=== PATIENT | male | born 1935 | race Caucasian/White ===

== ENCOUNTER 2016-10-29 09:43 | Outpatient (CLI) | payer MEDICARE, OTHER | END 2016-10-29 09:44 | disposition home or self-care (01) | DX: I48.91 Unspecified atrial fibrillation (principal); Z79.01 Long term (current) use of anticoagulants ==

== ENCOUNTER 2016-11-24 20:19 | Outpatient (CLI) | payer MEDICARE, OTHER | END 2016-11-24 20:20 | disposition home or self-care (01) | LOC: LAB.N 20:19 | PROVIDERS: ATTEND Internal Medicine | DX: I48.91 Unspecified atrial fibrillation (principal); Z79.01 Long term (current) use of anticoagulants | CPT/HCPCS: 85610 ==

== ENCOUNTER 2016-12-08 09:20 | Outpatient (CLI) | payer MEDICARE, OTHER | END 2016-12-08 09:21 | disposition home or self-care (01) | DX: I48.91 Unspecified atrial fibrillation (principal); Z79.01 Long term (current) use of anticoagulants ==

== ENCOUNTER 2016-12-30 10:10 | Outpatient (CLI) | payer MEDICARE, OTHER | END 2016-12-30 10:11 | disposition home or self-care (01) | DX: I50.9 Heart failure, unspecified (principal) ==

== ENCOUNTER 2017-01-05 08:00 | Outpatient (CLI) | payer MEDICARE, OTHER | END 2017-01-05 08:01 | disposition home or self-care (01) | DX: I48.91 Unspecified atrial fibrillation (principal); Z79.01 Long term (current) use of anticoagulants ==

== ENCOUNTER 2017-02-02 13:31 | Outpatient (CLI) | payer MEDICARE, OTHER | END 2017-02-02 13:32 | disposition home or self-care (01) | DX: I48.91 Unspecified atrial fibrillation (principal); Z79.01 Long term (current) use of anticoagulants ==

== ENCOUNTER 2017-02-26 08:56 | Outpatient (CLI) | payer MEDICARE, OTHER | END 2017-02-26 08:57 | disposition home or self-care (01) | DX: E78.2 Mixed hyperlipidemia (principal); Z79.899 Other long term (current) drug therapy ==

== ENCOUNTER 2017-03-04 13:03 | Outpatient (CLI) | payer MEDICARE, OTHER | END 2017-03-04 13:04 | LOC: LAB.N 13:03 | PROVIDERS: ATTEND Internal Medicine | DX: I48.91 Unspecified atrial fibrillation (principal); Z79.01 Long term (current) use of anticoagulants | CPT/HCPCS: 85610 ==

== ENCOUNTER 2017-03-20 11:29 | Outpatient (CLI) | payer MEDICARE, OTHER | END 2017-03-20 11:30 | disposition home or self-care (01) | LOC: LAB.N 11:29 | PROVIDERS: ATTEND Internal Medicine | DX: I48.91 Unspecified atrial fibrillation (principal) | CPT/HCPCS: 85610 ==

== ENCOUNTER 2017-04-02 14:16 | Outpatient (CLI) | payer MEDICARE, OTHER | END 2017-04-02 14:17 | disposition home or self-care (01) | LOC: LAB.N 14:16 | PROVIDERS: ATTEND Internal Medicine | DX: Z79.01 Long term (current) use of anticoagulants (principal) | CPT/HCPCS: 85610 ==

== ENCOUNTER 2017-05-04 08:37 | Outpatient (CLI) | payer MEDICARE, OTHER | END 2017-05-04 08:38 | disposition home or self-care (01) | LOC: LAB.N 08:37 | PROVIDERS: ATTEND Internal Medicine | DX: I48.91 Unspecified atrial fibrillation (principal) | CPT/HCPCS: 85610 ==

== ENCOUNTER 2017-05-18 08:00 | Outpatient (CLI) | payer MEDICARE, OTHER | END 2017-05-18 08:01 | disposition home or self-care (01) | LOC: LAB.N 08:00 | PROVIDERS: ATTEND Internal Medicine | DX: I48.91 Unspecified atrial fibrillation (principal) | CPT/HCPCS: 85610 ==

== ENCOUNTER 2017-06-04 10:46 | Outpatient (CLI) | payer MEDICARE, OTHER | END 2017-06-04 10:47 | disposition home or self-care (01) | LOC: LAB.N 10:46 | PROVIDERS: ATTEND Internal Medicine | DX: I48.91 Unspecified atrial fibrillation (principal) | CPT/HCPCS: 85610 ==

== ENCOUNTER 2017-06-18 23:48 | Outpatient (CLI) | payer MEDICARE, OTHER | END 2017-06-18 23:49 | disposition home or self-care (01) | LOC: LAB.N 23:48 | PROVIDERS: ATTEND Internal Medicine | DX: I48.91 Unspecified atrial fibrillation (principal); Z79.01 Long term (current) use of anticoagulants | CPT/HCPCS: 85610 ==

== ENCOUNTER 2017-07-02 10:23 | Outpatient (CLI) | payer MEDICARE, OTHER | END 2017-07-02 10:24 | disposition home or self-care (01) | LOC: LAB.N 10:23 | PROVIDERS: ATTEND Internal Medicine | DX: I48.91 Unspecified atrial fibrillation (principal); Z79.01 Long term (current) use of anticoagulants | CPT/HCPCS: 85610 ==

== ENCOUNTER 2017-07-16 15:27 | Outpatient (CLI) | payer MEDICARE, OTHER | END 2017-07-16 15:28 | disposition home or self-care (01) | LOC: LAB.N 15:27 | PROVIDERS: ATTEND Internal Medicine | DX: I48.91 Unspecified atrial fibrillation (principal); Z79.01 Long term (current) use of anticoagulants | CPT/HCPCS: 85610 ==

== ENCOUNTER 2017-07-30 15:41 | Outpatient (CLI) | payer MEDICARE, OTHER | END 2017-07-30 15:42 | LOC: LAB.N 15:41 | PROVIDERS: ATTEND Internal Medicine | DX: I48.91 Unspecified atrial fibrillation (principal); Z79.01 Long term (current) use of anticoagulants | CPT/HCPCS: 85610 ==

== ENCOUNTER 2017-08-27 13:09 | Outpatient (CLI) | payer MEDICARE, OTHER | END 2017-08-27 13:10 | disposition home or self-care (01) | LOC: LAB.N 13:09 | PROVIDERS: ATTEND Internal Medicine | DX: I48.91 Unspecified atrial fibrillation (principal); Z79.01 Long term (current) use of anticoagulants | CPT/HCPCS: 85610 ==

== ENCOUNTER 2017-10-21 15:14 | Outpatient (CLI) | payer MEDICARE, OTHER | END 2017-10-21 15:15 | LOC: LAB.N 15:14 | PROVIDERS: ATTEND Internal Medicine | DX: I48.91 Unspecified atrial fibrillation (principal); Z79.01 Long term (current) use of anticoagulants | CPT/HCPCS: 85610 ==

== ENCOUNTER 2017-11-23 13:12 | Outpatient (CLI) | payer MEDICARE, OTHER | END 2017-11-23 13:13 | disposition home or self-care (01) | LOC: LAB.N 13:12 | PROVIDERS: ATTEND Internal Medicine | DX: I48.91 Unspecified atrial fibrillation (principal); Z79.01 Long term (current) use of anticoagulants | CPT/HCPCS: 85610 ==

== ENCOUNTER 2017-12-21 13:07 | Outpatient (CLI) | payer MEDICARE, OTHER | END 2017-12-21 13:08 | disposition home or self-care (01) | LOC: LAB.N 13:07 | PROVIDERS: ATTEND Internal Medicine | DX: I48.91 Unspecified atrial fibrillation (principal); Z79.01 Long term (current) use of anticoagulants | CPT/HCPCS: 85610 ==

== ENCOUNTER 2018-01-06 13:45 | Outpatient (CLI) | payer MEDICARE, OTHER | END 2018-01-06 13:46 | LOC: LAB.N 13:45 | PROVIDERS: ATTEND Internal Medicine | DX: I48.91 Unspecified atrial fibrillation (principal); Z79.01 Long term (current) use of anticoagulants | CPT/HCPCS: 85610 ==

== ENCOUNTER 2018-01-15 09:00 | Outpatient (CLI) | payer MEDICARE, OTHER | END 2018-01-15 09:01 | disposition home or self-care (01) | LOC: LAB.N 09:00 | PROVIDERS: ATTEND Internal Medicine | DX: I48.91 Unspecified atrial fibrillation (principal); Z79.01 Long term (current) use of anticoagulants | CPT/HCPCS: 85610 ==

== ENCOUNTER 2018-02-01 08:00 | Outpatient (CLI) | payer MEDICARE, OTHER | END 2018-02-01 23:59 | LOC: LAB.N 08:00 | PROVIDERS: ATTEND Internal Medicine | DX: I48.91 Unspecified atrial fibrillation (principal); Z79.01 Long term (current) use of anticoagulants | CPT/HCPCS: 85610 ==

== ENCOUNTER 2018-03-01 14:00 | Outpatient (CLI) | payer MEDICARE, OTHER | END 2018-03-01 14:01 | LOC: LAB.N 14:00 | PROVIDERS: ATTEND Internal Medicine | DX: I48.91 Unspecified atrial fibrillation (principal); Z79.01 Long term (current) use of anticoagulants | CPT/HCPCS: 85610 ==

== ENCOUNTER 2018-03-16 14:11 | Outpatient (CLI) | payer MEDICARE, OTHER | END 2018-03-16 14:12 | disposition home or self-care (01) | LOC: LAB.N 14:11 | PROVIDERS: ATTEND Internal Medicine | DX: I48.91 Unspecified atrial fibrillation (principal); Z79.01 Long term (current) use of anticoagulants | CPT/HCPCS: 85610 ==

== ENCOUNTER → 2018-08-13 | Outpatient (CLI) | payer MEDICARE, OTHER | LOC: LAB.N 14:12 | PROVIDERS: ATTEND Family Medicine | DX: I48.91 Unspecified atrial fibrillation (principal); Z79.01 Long term (current) use of anticoagulants | CPT/HCPCS: 85610 ==

== ENCOUNTER 2018-11-03 08:00 | Outpatient (CLI) | payer MEDICARE, OTHER ==
[2018-11-03 19:29] LABS: BASOPHILS % (AUTO) 0.6 %; EOSINOPHILS # (AUTO) 0.2 10^3/uL (0.0-0.7); EOSINOPHILS % (AUTO) 2.2 %; HGB - HEMOGLOBIN 14.6 g/dL (14.0-18.0); LYMPHOCYTES # (AUTO) 1.4 10^3/uL (1.5-3.5); LYMPHOCYTES % (AUTO) 20.5 %; MEAN CORPUSCULAR HEMOGLOBIN 28.2 pg (27.0-31.0); MEAN CORPUSCULAR HGB CONC 31.8 g/dL (32.0-36.0); MEAN CORPUSCULAR VOLUME 88.9 fL (80.0-94.0); MEAN PLATELET VOLUME 7.7 fL (7.4-11.4); MONOCYTES # (AUTO) 0.8 10^3/uL (0.0-1.0); MONOCYTES % (AUTO) 11.9 %; NEUTROPHILS # (AUTO) 4.5 10^3/uL (1.5-6.6); NEUTROPHILS % (AUTO) 64.8 %; PLT - PLATELET COUNT 237 10^3/uL (130-450); RED BLOOD COUNT 5.18 10^6/uL (4.70-6.10); RED CELL DISTRIBUTION WIDTH 14.7 % (12.0-15.0)
[2018-11-03 20:00] LABS: ALBUMIN 3.6 g/dL (3.2-5.5); ALKALINE PHOSPHATASE 92 IU/L (42-121); ALT ALANINE AMINOTRANSFERASE 21 IU/L (10-60); AST ASPARTATE AMINOTRANSFERASE 25 IU/L (10-42); BILIRUBIN,TOTAL 0.8 mg/dL (0.2-1.0); BUN - BLOOD UREA NITROGEN 23 mg/dL (6-20); CHOLESTEROL 144 mg/dL; CREATININE 0.9 mg/dL (0.6-1.2); GFR - MDRD 81 (>89); HDL CHOLESTEROL 36 mg/dL; LDL CHOLESTEROL,CALCULATED 75 mg/dL; LDL/HDL RATIO 2.1 (<3.6); TOTAL PROTEIN 7.2 g/dL (6.7-8.2); VLDL CHOLESTEROL 33 mg/dL
[2018-11-03 20:23] LABS: CALCIUM 9.5 mg/dL (8.5-10.3); CARBON DIOXIDE - CO2 27 mmol/L (21-32); CHLORIDE 103 mmol/L (101-111); GLUCOSE 139 mg/dL (70-100); SODIUM 136 mmol/L (135-145)
== END 2018-11-03 23:59 | disposition home or self-care (01) ==
LOC: LAB.N 08:00
PROVIDERS: ATTEND Family Medicine
DX: I48.91 Unspecified atrial fibrillation (principal); E78.2 Mixed hyperlipidemia; Z12.5 Encounter for screening for malignant neoplasm of prostate
CPT/HCPCS: 36415; 80053; 80061; 84443; 85025; 85610; G0103; 83721; 84153

== ENCOUNTER 2018-11-12 08:00 | Outpatient (CLI) | payer MEDICARE, OTHER | END 2018-11-12 23:59 | disposition home or self-care (01) | LOC: LAB.N 08:00 | PROVIDERS: ATTEND Family Medicine | DX: I48.91 Unspecified atrial fibrillation (principal); Z79.01 Long term (current) use of anticoagulants | CPT/HCPCS: 85610 ==

== ENCOUNTER 2018-12-09 08:00 | Outpatient (CLI) | payer MEDICARE, OTHER | END 2018-12-09 23:59 | disposition home or self-care (01) | LOC: LAB.N 08:00 | PROVIDERS: ATTEND Family Medicine | DX: I48.91 Unspecified atrial fibrillation (principal); Z79.01 Long term (current) use of anticoagulants | CPT/HCPCS: 85610 ==

== ENCOUNTER 2019-01-07 08:00 | Outpatient (CLI) | payer MEDICARE, OTHER | END 2019-01-07 23:59 | disposition home or self-care (01) | LOC: LAB.N 08:00 | PROVIDERS: ATTEND Family Medicine | DX: I48.91 Unspecified atrial fibrillation (principal); Z79.01 Long term (current) use of anticoagulants | CPT/HCPCS: 85610 ==

== ENCOUNTER 2019-05-06 12:25 | Outpatient (CLI) | payer MEDICARE, OTHER | END 2019-05-06 12:26 | disposition EMS.NT | LOC: EMS 12:25 | PROVIDERS: ATTEND Surgery | DX: Z03.89 Encounter for observation for other suspected diseases and conditions ruled out (principal) ==

== ENCOUNTER 2019-05-29 09:42 | Outpatient (CLI) | payer MEDICARE, OTHER | END 2019-05-29 09:43 | disposition EMS.NT | LOC: EMS 09:42 | PROVIDERS: ATTEND Surgery | DX: Z03.89 Encounter for observation for other suspected diseases and conditions ruled out (principal) ==

== ENCOUNTER 2019-06-21 08:00 | Outpatient (CLI) | payer MEDICARE, OTHER ==
[2019-06-21 19:15] LABS: CHOLESTEROL 133 mg/dL; HDL CHOLESTEROL 33 mg/dL; LDL CHOLESTEROL,CALCULATED 70 mg/dL; LDL/HDL RATIO 2.1 (<3.6); VLDL CHOLESTEROL 30 mg/dL
== END 2019-06-21 23:59 | disposition home or self-care (01) ==
LOC: LAB.N 08:00
PROVIDERS: ATTEND Family Medicine
DX: E78.2 Mixed hyperlipidemia (principal); Z12.5 Encounter for screening for malignant neoplasm of prostate
CPT/HCPCS: 36415; 80061; G0103; 83721; 84153

== ENCOUNTER 2019-09-23 03:21 | Outpatient (CLI) | payer MEDICARE, OTHER | END 2019-09-23 03:22 | disposition EMS.NT | LOC: EMS 03:21 | PROVIDERS: ATTEND Surgery | DX: R53.1 Weakness (principal); W01.0XXA Fall on same level from slipping, tripping and stumbling without subsequent striking against object, initial encounter; Y92.003 Bedroom of unspecified non-institutional (private) residence as the place of occurrence of the external cause ==

== ENCOUNTER 2019-10-19 22:05 | Outpatient (CLI) | payer MEDICARE, OTHER | END 2019-10-19 23:59 | disposition short-term general hospital (02) | LOC: EMS 22:05 | PROVIDERS: ATTEND Surgery | DX: R03.1 Nonspecific low blood-pressure reading (principal); R53.1 Weakness | CPT/HCPCS: A0425; A0427; A0888 ==